=== PATIENT | male | born 1975 | race Caucasian/White ===

== ENCOUNTER 2016-10-12 00:10 | Emergency (ER) | payer BC ==
[~2016-10-12] VITALS: Ht 172.7 cm; Wt 70.3 kg
[2016-10-12 00:21] VITALS: BP 136/84
--- NOTE | 2016-10-12 01:26 | NUR ---
PT TAKEN TO BED 4
--- NOTE | 2016-10-12 01:30 | NUR ---
41 Y/O M W/C/O TICK BITE WITH REDNESS ON HIS ABDOMENAND CHILLS SINCE YESTERDAY.PT STATES WAS SEEN YESTERDAY IN URGENT CARE BUT WAS SEEN HERE BY MD. DENIES ANY SOB, NO S/S OF DISTRESS NOTED AT THE MOMENT. ER MD MADE AWARE.
--- NOTE | 2016-10-12 01:42 | NUR ---
Dr. Vaca evaluating patient at bedside.
[2016-10-12] MEDS ORDERED: LIDOCAINE/EPI 1% 1:100000 20 ML VIAL INJ ONE (01:50)
[2016-10-12] MEDS ORDERED: ACETAMINOPHEN/CODEINE 300/30MG 1 TAB PO ONE (01:50)
[2016-10-12] MEDS ORDERED: BACITRACIN OINT 500 UNITS/GM PKT TP ONE ×2 (01:58→02:20)
[2016-10-12] MEDS ORDERED: DOXYCYCLINE 100 MG CAP PO STA (02:16)
--- NOTE | 2016-10-12 03:10 | NUR ---
Patient discharged with v/s stable. Written and verbal after care instructions given and explained. Patient alert, oriented and verbalized understanding of instructions. Ambulatory with steady gait. All questions addressed prior to discharge. ID band removed. Patient advised to follow up with PMD. Rx of DOXYCYCLINE 100 MG, NAPROSYN 500 MG given. Patient educated on indication of medication including possible reaction and side effects. Opportunity to ask questions provided and answered.
[2016-10-12 03:47] VITALS: BP 130/78
== END 2016-10-12 03:10 | disposition home or self-care (01) ==
LOC: MED 00:10
DX: S30.861A Insect bite (nonvenomous) of abdominal wall, initial encounter (principal); W57.XXXA Bitten or stung by nonvenomous insect and other nonvenomous arthropods, initial encounter; Y93.89 Activity, other specified; Y92.89 Other specified places as the place of occurrence of the external cause; Y99.8 Other external cause status
CPT/HCPCS: 99283; J2001